=== PATIENT | male | born 1950 | race African-American/Black ===

== ENCOUNTER 2020-04-26 17:18 | Inpatient (IN) | payer MEDICARE, OTHER ==
[2020-04-26] MEDS ORDERED: Diltiazem 125 MG/25 ML ONE (17:47)
--- NOTE | 2020-04-26 17:51 | RAD ---
Portable frontal chest radiograph: 04/26/2020 COMPARISON: 07/29/2020 HISTORY: Weakness, cough, hypotension FINDINGS: Stable heart and mediastinal contours. Stable atherosclerotic calcification of the aortic a rch. Mild linear interstitial density seen in the perihilar regions, not significantly changed. No focal consolidation or alveolar edema. IMPRESSION: No significant interval change.
[2020-04-26 18:07] LABS: Hemoglobin 14.9 g/dL (14.0-18.0); Mean Corpuscular HGB CONC 33.3 g/dL (32.0-36.0); Mean Corpuscular Hemoglobin 30.6 pg (27.0-31.0); Mean Corpuscular Volume 91.9 fL (78.0-98.0); Mean Platelet Volume 9.8 fL (7.4-10.4); Platelet Count 199 thou/uL (130-400); RBC Distribution Width 13.5 % (11.5-14.5); Red Blood Cell (RBC) Count 4.87 mill/uL (4.70-6.10); White Blood Cell (WBC) Count 28.2 thou/uL (4.8-10.8)
[2020-04-26 18:40] LABS: ALT (SGPT) 115 U/L (8-55); AST (SGOT) 111 U/L (5-34); Albumin 2.8 g/dL (3.4-4.8); Alkaline Phosphatase 154 U/L (40-110); Anion Gap 23 mmol/L (10-20); Bilirubin, Total 1.4 mg/dL (0.2-1.2); Calc. Creatinine Clearance 0 mL/min (70-130); Carbon Dioxide 18 mmol/L (23-31); Chloride 107 mmol/L (98-107); Globulin 3.9 g/dL (2.4-3.5); Glucose 71 mg/dL (80-115); Potassium 5.3 mmol/L (3.5-5.1); Protein, Total 6.7 g/dL (5.8-8.1); Sodium 143 mmol/L (136-145)
[2020-04-26 18:41] LABS: Band 26 % (5-11); Lymphocytes 1 % (21-51); MDiff Complete? YES; Monocytes 3 % (0-10); Neutrophil 70 % (42-75); Platelet Morphology Comment Appears Adequate; Polychromasia SLIGHT = 2-3 cells (100X) (0-2/hpf); Target Cells SLIGHT = 2-5 cells (100X) (0-1/hpf)
[2020-04-26 18:53] LABS: CKMB 4.6 ng/mL (0-6.6)
[2020-04-26 18:57] LABS: BUN (Urea Nitrogen) 114 mg/dL (8.4-25.7)
[2020-04-26 19:08] LABS: Bacteria/HPF 4+ HPF (None Seen); Bilirubin Negative (Negative); Blood, Urine 2+ (Negative); Clarity Turbid (Clear); Glucose, Urine (Dipstick) Normal (Negative); Ketone, Urine Negative (Negative); Leukocyte 500 Leu/uL (Negative); Nitrite Negative (Negative); Protein, Urine (Dipstick) 30 mg/dL (Neg-Trace); Specific Gravity, Urine 1.015 (1.002-1.036); Squamous Epithelial 0-3 HPF (0-3); WBC/HPF Greater than 50 HPF (0-3); pH, Urine 5.5 (5.0-9.0)
[2020-04-26 19:19] LABS: Amphetamine Not Detected (NotDetected); Barbiturates Screen Not Detected (NotDetected); Benzodiazepine Screen Not Detected (NotDetected); Cocaine Metabolite Screen Not Detected (NotDetected); Medtox Control Line Valid? VALID (VALID); Medtox Reader # READER 4; Methadone Not Detected (NotDetected); Methamphetamine Not Detected (NotDetected); Opiate Screen Not Detected (NotDetected); Oxycodone Screen Not Detected (NotDetected); Phencyclidine (PCP) Not Detected (NotDetected); THC/Cannabinoid Screen Not Detected (NotDetected); Tricyclic Screen Not Detected (NotDetected)
[2020-04-26] MEDS ORDERED: Vancomycin 1 GM/200 ML BAG ONE (19:28)
[2020-04-26] MEDS ORDERED: Piperacillin/Tazobactam 4.5 GM VIAL ONE (20:03)
--- NOTE | 2020-04-26 20:03 | ULT ---
Right upper quadrant ultrasound: 04/26/2020 COMPARISON: None HISTORY: Elevated white blood cell count, elevated liver function tests TECHNIQUE: Multiplanar grayscale sonographic imaging of the right upper quadrant obtained. FINDINGS: The pancreas is not well assessed on this examination secondary to body habitus and bowel g as. There is an echogenic lesion within the left lobe of the liver which measures approximately 3.4 x 2.6 x 1.7 cm. This could be related to focal fatty infiltration or a focal liver lesion, such as a hemangioma. However, this cannot be fully characterized on this exam. No gallbladder wall thickening. No pericholecystic free fluid. The common bile duct measures 5 mm, no rmal. Multiple right renal cysts are noted measuring up to 3.9 cm. The right kidney measures 11.7 cm in multi craft maintenance technician niocaudal dimension and demonstrates no stone stone or hydronephrosis. IMPRESSION: No cholelithiasis or gallbladder wall thickening. Nonspecific echogenic lesion within the liver for which nonemergent follow-up CT advised with and wit hout contrast using hepatic mass protocol. CODE T
[2020-04-26] MEDS ORDERED: Acetaminophen 325 MG TAB PO PRN (22:15)
[2020-04-26] MEDS ORDERED: Ondansetron PF 4 MG/2 ML Vial IVP PRN (22:15)
[2020-04-26] MEDS ORDERED: Ondansetron ODT 4 MG TAB SL PRN (22:15)
[2020-04-26 22:35] LABS: SARS-CoV-2 NAA Rapid Test DETECTED (NotDetected)
[2020-04-26 22:55] VITALS: BMI 24.8
[2020-04-26 23:08] LABS: Lactic Acid 1.6 mmol/L (0.5-2.2)
[2020-04-27] MEDS ORDERED: Labetalol HCl 100 MG/20 ML VIAL SLOW IVP PRN (00:53)
[2020-04-27] MEDS ORDERED: cloNIDine 0.1 MG TAB PO PRN (00:53)
[2020-04-27] MEDS ORDERED: Acetaminophen 325 MG TAB PO PRN (00:53)
[2020-04-27] MEDS ORDERED: Promethazine HCl 12.5 MG in Sodium Chloride 0.9% 50 ML IVPB PRN (00:53)
[2020-04-27] MEDS ORDERED: Ondansetron PF 4 MG/2 ML Vial IVP PRN (00:53)
[2020-04-27] MEDS ORDERED: hydrALAZINE 20 MG/ML VIAL SLOW IVP PRN (00:53)
[2020-04-27] MEDS ORDERED: HYDROcodone/Acetaminophen 5/325 mg Tablet PO PRN (00:53)
[2020-04-27] MEDS ORDERED: Guaifenesin DM 100-10/5 ML UDCUP PO PRN (00:53)
[2020-04-27] MEDS ORDERED: Morphine 2 MG/ML VIAL SLOW IVP PRN (00:53)
[2020-04-27] MEDS ORDERED: Electrolyte Replacement Protocol 1 EACH FS PRN (01:00)
--- NOTE | 2020-04-27 01:09 | PDOC.HHP ---
Hospitalist HPI - History of Present Illness Weakness History of Present Illness: Patient is a 69 year old male with PMH HTN, atrial fibrillation on xarelto who presents to ED for 2 days of weakness. He reports was having difficulty getting off the floor he was so weak. He reports having the flu on 04/15. Initial vital signs significant for afib w/ RVR to 150 bpm, hypotension 94/63, improved with IVF. He denies fever, chills, cough, chest pain, shortness of breath. No nausea, vomiting, diarrhea, abdominal pain. Labs significant for WBC 28, bandemia, K 5.3, CO2 18, Cr 4.61, TnI 0.139, UA positive for UTI, EKG afib rvr rate 150, elevated LFTs. patient given diltiazem, RUQ performed which was negative for cholecystitis, patient given ABX and admitted for further workup and care. Hospitalist ROS - Review of Systems Constitutional: reports: weakness, malaise. denies: fever, chills, sweats, other Eyes: denies: pain, vision change, conjunctivae inflammation, eyelid inflammation, redness, other ENT: denies: ear pain, ear discharge, nose pain, nose discharge, nose congestion, mouth pain, mouth swelling, throat pain, throat swelling, other Respiratory: denies: cough, dry, shortness of breath, hemoptysis, SOB with excertion, pleuritic pain, sputum, wheezing, other Cardiovascular: denies: chest pain, palpitations, orthopnea, paroxysmal noc. dyspnea, edema, light headedness, other Gastrointestinal: denies: nausea, vomiting, abdominal pain, diarrhea, constipation, melena, hematochezia, other Genitourinary: denies: dysuria, frequency, incontinence, hematuria, retention, other Musculoskeletal: denies: neck pain, shoulder pain, arm pain, back pain, hand miguel angel n, leg pain, foot pain, other Skin: denies: rash, lesions, courtney, bruising, other Neurological: denies: weakness, numbness, incoordination, change in speech, confusion, seizures, other All other systems reviewed; all pertinent +/- noted in HPI/Subj - Medication Medications: lisinopril [facility] Apr 26, 2020 18:04 CHANDRIKA Edwards, Bindu tablet : Strength - 20 mg : ORAL Patient Dose: 20 mg Oral once a day. carvedilol [facility] Apr 26, 2020 18:04 CHANDRIKA Edwards Laine tablet : Strength - 25 mg : ORAL Patient Dose: 25 mg Oral once a day. spironolactone [facility] Apr 26, 2020 18:04 CHANDRIKA Edwards Laine tablet : Strength - 25 mg : ORAL Patient Dose: 25 mg Oral. amLODIPine [facility] Apr 26, 2020 18:05 CHANDRIKA Edwards Laine tablet : Strength - 5 mg : ORAL Patient Dose: 5 mg Oral once a day. simvastatin [facility] Apr 26, 2020 18:05 CHANDRIKA Edwards Laine tablet : Strength - 20 mg : ORAL Patient Dose: 20 mg Oral once a day. buPROPion HCl [facility] Apr 26, 2020 18:05 CHANDRIKA Edwards Laine tablet extended release 24 hr : Strength - 300 mg : ORAL Patient Dose: 300 mg Oral once a day. isosorbide mononitrate [facility] Apr 26, 2020 18:07 CHANDRIKA Edwards Laine tablet extended release 24 hr : Strength - 30 mg : ORAL Patient Dose: 30 mg Oral once a day. Xarelto [facility] Apr 26, 2020 18:08 CHANDRIKA Edwards Laine tablet : Strength - 20 mg : ORAL Patient Dose: 20 mg Oral once a day. aspirin oral [facility] Apr 26, 2020 18:09 CHANDRIKA Edwards Laine tablet : Strength - 81 mg : ORAL Patient Dose: 81 mg Oral once a day. Hospitalist History - Past Medical History Other Medical History: HTN, atrial fibrillation on xarelto - Past Surgical History Past Surgical History: reports: no pertinent history - Family History Family History: reports: no pertinent history - Social History Smoking Status: Former smoker Alcohol: reports: None Drugs: reports: none - Exam General Appearance: NAD, awake alert Eye: PERRL, anicteric sclera ENT: normocephalic atraumatic, no oropharyngeal lesions, moist mucosa Neck: supple, symmetric, no JVD, no thyromegaly, no lymphadenopathy, no carotid bruit Heart: no murmur, no gallops, no rubs, normal peripheral pulses, irregular Heart - other findings: tachycardic Respiratory: CTAB, no wheezes, no rales, no ronchi, normal chest expansion, no tachypnea, normal percussion Gastrointestinal: soft, non-tender, non-distended, normal bowel sounds, no palpable masses, no hepatomegaly, no splenomegaly, no bruit Extremities: no cyanosis, no clubbing, no edema Skin: normal turgor, no lesions, no rashes Neurological: cranial nerve grossly intact, normal sensation to touch, no weakness, no focal deficits, no new deficit Musculoskeletal: normal tone, normal strength, no muscle wasting Psychiatric: normal affect, normal behavior, A&O x 3 Hospitalist Results - Labs Result Diagrams: 04/26/20 17:56 04/26/20 17:56 Lab results: WBC 28.2 thou/uL (4.8-10.8) H 04/26/20 17:56 Hgb 14.9 g/dL (14.0-18.0) 04/26/20 17:56 Hct 44.7 % (42.0-52.0) 04/26/20 17:56 MCV 91.9 fL (78.0-98.0) 04/26/20 17:56 Plt Count 199 thou/uL (130-400) 04/26/20 17:56 Band Neuts % (Manual) 26 % (5-11) H 04/26/20 17:56 Sodium 143 mmol/L (136-145) 04/26/20 17:56 Potassium 5.3 mmol/L (3.5-5.1) H 04/26/20 17:56 Chloride 107 mmol/L (98-107) 04/26/20 17:56 Carbon Dioxide 18 mmol/L (23-31) L 04/26/20 17:56 BUN 114 mg/dL (8.4-25.7) H 04/26/20 17:56 Creatinine 4.61 mg/dL (0.7-1.3) H 04/26/20 17:56 Glucose 71 mg/dL (80-115) L 04/26/20 17:56 Lactic Acid 1.6 mmol/L (0.5-2.2) 04/26/20 22:46 Calcium 8.0 mg/dL (7.8-10.44) 04/26/20 17:56 Total Bilirubin 1.4 mg/dL (0.2-1.2) H 04/26/20 17:56 AST 111 U/L (5-34) H 04/26/20 17:56 ALT 115 U/L (8-55) H 04/26/20 17:56 Alkaline Phosphatase 154 U/L (40-110) H 04/26/20 17:56 Creatine Kinase 867 U/L (30-200) H 04/26/20 18:35 CK-MB (CK-2) 4.6 ng/mL (0-6.6) 04/26/20 17:56 Troponin I 0.139 ng/mL (< 0.028) H 04/26/20 17:56 B-Natriuretic Peptide 128.6 pg/mL (0-100) H 04/26/20 17:56 Serum Total Protein 6.7 g/dL (5.8-8.1) 04/26/20 17:56 Albumin 2.8 g/dL (3.4-4.8) L 04/26/20 17:56 Urine Ketones Negative mg/dL (Negative) 04/26/20 18:41 Urine Blood 2+ (Negative) A 04/26/20 18:41 Urine Nitrite Negative (Negative) 04/26/20 18:41 Ur Leukocyte Esterase 500 Ishan/uL (Negative) A 04/26/20 18:41 Urine RBC 4-6 HPF (0-3) A 04/26/20 18:41 Urine WBC Greater than 50 HPF (0-3) A 04/26/20 18:41 Ur Squamous Epith Cells 0-3 HPF (0-3) 04/26/20 18:41 Urine Bacteria 4+ HPF (None Seen) A 04/26/20 18:41 Additional comment: VITAL SIGNS [facility] Apr 26, 2020 17:39 CHANDRIKA Edwards Laine BP: 93/76 Pulse: 128 Resp: 20 Temp: 98.9 (Oral) Pain: 0 O2 sat: 100 on (Room Air) Time: 04/26/2020 17:39. - EKG Interpretation EKG: afib rvr rate [address] changes, QTc 420 Hospitalist H&P A/P - Plan Plan: Patient is a 69 year old male with PMH HTN, atrial fibrillation on xarelto who presents to ED for 2 days of weakness. # UTI # sepsis secondary to UTI # metabolic encephalopathy tachycardia, afib rvr, weakness x 2 days improved with initial management in ED - admit to floor - continue IVF - monitor on telemetry - ceftriaxone - follow cultures - PT/OT # afib w/ RVR # elevated troponin # elevated LFTs - US abdomen negative for cholecystitis, suspect these abnormalities secondary to hypotension, sepsis, and demand ischemia - treat as above - trend labs daily - continue home aspirin, xarelto # hyperkalemia - mild, K 5.3 on admission # RYLAN - patient clinically hypovolemia - continue treatment as above, IVF, monitor renal function # HTN - hold home BP medications, continue treatment as above and resume once appropriate # DVT ppx - xarelto # GI ppx - pepcid
[2020-04-27] MEDS: Sodium Chloride 0.9% 1,000 ML IV SCH ×3 (01:16→19:27)
[2020-04-27] MEDS ORDERED: cefTRIAXone\\ROCEPHIN 1 GM in Sodium Chloride 0.9% 100 ML IVPB SCH ×2 (02:00→21:00)
[2020-04-27] MEDS ORDERED: Azithromycin 500 MG in Syringe 0 ML IVPB SCH (02:15)
[2020-04-27] MEDS ORDERED: Dexamethasone 4 mg/ml Vial SLOW IVP SCH (02:15)
[2020-04-27] MEDS ORDERED: Azithromycin 500 MG in Sodium Chloride 0.9% 250 ML 250 ML IVPB SCH (03:00)
[2020-04-27 05:40] LABS: Anion Gap 18 mmol/L (10-20); BUN (Urea Nitrogen) 102 mg/dL (8.4-25.7); Calc. Creatinine Clearance 25 mL/min (70-130); Calcium 8.1 mg/dL (7.8-10.44); Carbon Dioxide 19 mmol/L (23-31); Chloride 109 mmol/L (98-107); Glucose 90 mg/dL (80-115); Magnesium 2.4 mg/dL (1.6-2.6); Potassium 3.8 mmol/L (3.5-5.1); Sodium 142 mmol/L (136-145)
[2020-04-27 05:55] LABS: Band 24 % (5-11); Hemoglobin 14.1 g/dL (14.0-18.0); Lymphocytes 2 % (21-51); MDiff Complete? YES; Mean Corpuscular HGB CONC 32.8 g/dL (32.0-36.0); Mean Corpuscular Volume 91.5 fL (78.0-98.0); Mean Platelet Volume 9.5 fL (7.4-10.4); Monocytes 4 % (0-10); Neutrophil 70 % (42-75); Platelet Count 192 thou/uL (130-400); RBC Distribution Width 13.5 % (11.5-14.5); White Blood Cell (WBC) Count 21.4 thou/uL (4.8-10.8)
[2020-04-27] MEDS: Aspirin 81 mg Enteric Coated Tablet PO SCH (08:06)
[2020-04-27] MEDS: Rivaroxaban 10 MG TAB PO SCH (08:06)
[2020-04-27] MEDS: Famotidine 20 MG TAB PO SCH (08:06)
[2020-04-27] MEDS ORDERED: Spironolactone 25 MG TAB PO SCH (09:00)
--- NOTE | 2020-04-27 09:14 | PDOC.HOSPP ---
- Subjective Encounter Date: 04/27/20 Encounter Time: 09:11 Subjective: profound weakness, generalized. had flu 2 weeks ago - Objective Vital Signs & Weight: Vital Signs (12 hours) Temp Pulse Resp BP Pulse Ox 04/27/20 08:06 97.8 F 88 18 128/58 L 97 04/27/20 03:35 97.6 F 69 18 99/59 L 93 L 04/27/20 00:05 107 H 103/77 95 04/26/20 22:00 97.7 F 104 H 24 H 137/64 94 L Weight Weight 180 lb 11.2 oz I&O: 04/26/20 04/27/20 04/28/20 06:59 06:59 06:59 Intake Total 1510 1103 Output Total 950 300 Balance 560 803 Result Diagrams: 04/27/20 05:00 04/27/20 05:00 Hospitalist ROS - Medication Medications: Active Medications Generic Name Dose Route Start Last Admin Trade Name Freq PRN Reason Stop Dose Admin Aspirin 81 mg 04/27/20 09:00 04/27/20 08:06 Aspirin 81 Mg Enteric Coated Tablet PO 81 mg DAILY TAM Administration Dexamethasone 6 mg 04/27/20 02:15 04/27/20 02:36 Dexamethasone 4 Mg/Ml Vial SLOW IVP 6 mg Q24H TAM Administration Famotidine 20 mg 04/27/20 09:00 04/27/20 08:06 Famotidine 20 Mg Tab PO 20 mg 0900 TAM Administration Sodium Chloride 1,000 mls @ 100 mls/hr 04/27/20 01:00 04/27/20 01:16 Normal Saline 0.9% IV 1,000 mls .Q10H TAM Administration Azithromycin 500 mg/ Sodium 250 mls @ 250 mls/hr 04/27/20 03:00 04/27/20 03:34 Chloride IVPB 250 mls Q24HR TAM Administration Rivaroxaban 20 mg 04/27/20 09:00 04/27/20 08:06 Rivaroxaban 10 Mg Tab PO 20 mg DAILY TAM Administration Spironolactone 25 mg 04/27/20 09:00 04/27/20 08:06 Spironolactone 25 Mg Tab PO 25 mg DAILY TAM Administration - Exam General Appearance: awake alert Neck: no JVD Heart: no murmur, irregular Respiratory: CTAB Gastrointestinal: soft, normal bowel sounds Extremities: no edema Hosp A/P (1) COVID-19 Code(s): U07.1 - COVID-19 Status: Acute (2) Atrial fibrillation with RVR Code(s): I48.91 - UNSPECIFIED ATRIAL FIBRILLATION Status: Acute (3) Acute renal failure Status: Acute Qualifiers: Acute renal failure type: unspecified Qualified Code(s): N17.9 - Acute kidney failure, unspecified (4) Leukocytosis Code(s): D72.829 - ELEVATED WHITE BLOOD CELL COUNT, UNSPECIFIED Status: Acute Qualifiers: Leukocytosis type: unspecified Qualified Code(s): D72.829 - Elevated white blood cell count, unspecified (5) HTN (hypertension) Code(s): I10 - ESSENTIAL (PRIMARY) HYPERTENSION Status: Chronic Qualifiers: Hypertension type: essential hypertension Qualified Code(s): I10 - Essential (primary) hypertension (6) Anticoagulant long-term use Code(s): Z79.01 - ADJUNCT PROFESSOR (CURRENT) USE OF ANTICOAGULANTS Status: Acute (7) Weakness Code(s): R53.1 - WEAKNESS Status: Acute - Plan no evidence covid PNA obtain CRP, D-Dimer, ferriten cont iv diltiazem, cardiology consult await C&S blood, urine cont iv antibx will discuss with Gray lino, serial BMP
[2020-04-27] MEDS: Simvastatin 20 MG TAB PO SCH (13:09)
[2020-04-27] MEDS: Bupropion 150 MG XL TAB PO SCH (13:09)
--- NOTE | 2020-04-27 14:58 | PDOC.BPN ---
- Brief Progress Note Encounter Date: 04/27/20 Encounter Time: 14:57 no evidense covid PNA. DC dexamethasone. urine C&S graam neg viviane- change antibx to cefepime pending sensativities. Dx sepsi, UTI.
[2020-04-27] MEDS ORDERED: Potassium Chloride 20 MEQ TAB PO SCH (17:00)
[2020-04-27] MEDS: Cefepime 2 GM in Sodium Chloride 0.9% 100 ML IVPB SCH (18:16)
--- NOTE | 2020-04-27 19:25 | CON ---
DATE OF CONSULTATION: PRIMARY COTTON FARMER: Dr. Ambrosio Walker. REASON FOR CONSULTATION: Atrial fibrillation and nonsustained ventricular tachycardia, COVID positive. HISTORY OF PRESENT ILLNESS: Mr. Ervin is a 69-year-old gentleman who states he has been feeling extremely weak since the early part of this month. He said specifically on the 15 of April, started feeling very very weak. He got weak and weaker over the last 12 days, finally came to the emergency room, was found to be in atrial fibrillation with rapid ventricular response from what I can tell. He could not tell he was in atrial fibrillation. He has also had renal failure and hypotension. He received intravenous fluid. He was found to have a very high white blood cell count and a creatinine of 4.6. Urinary tract infection was found. He has been given diltiazem. MEDICATIONS: As an outpatient, he is on, 1. Spironolactone 25 mg a day. 2. Lisinopril 20 mg a day. 3. Rivaroxaban (Xarelto) 20 mg a day. 4. Isosorbide 30 mg a day. 5. Carvedilol 25 mg, it is listed here as once a day. 6. Aspirin 81 mg a day. 7. Amlodipine 5 mg a day. ALLERGIES: NONE KNOWN. SOCIAL HISTORY: He said he quit smoking when he got sick in the . REVIEW OF SYSTEMS: CONSTITUTIONAL: No significant weight gain or loss, although he looks very thin. VISION: No changes. HEARING: No changes. PULMONARY: He is short of breath. CARDIAC: No chest pain or pressure. He is not aware of being in atrial fibrillation, cannot feel the palpitations. ABDOMEN: No nausea, vomiting, or diarrhea. PHYSICAL EXAMINATION: GENERAL: This is a somewhat chronically ill-appearing, very pleasant gentleman, in no distress. VITAL SIGNS: Oxygen saturations are variable, they intermittently go into the high 90s, but then drop into the mid 80s. Blood pressure 122/68. Pulse currently 80, it is irregularly irregular. NECK: Veins are normal. Carotid normal upstrokes. LUNGS: I do not hear wheezing, rales, or rhonchi. Breath sounds are somewhat shallow. CARDIAC: Irregularly irregular. No murmur, rub, or gallop. ABDOMEN: Soft, nontender. EXTREMITIES: Warm, dry. No clubbing or cyanosis. He has no edema. IMAGING: EKG reveals atrial fibrillation initially with a very rapid ventricular response, now more controlled ventricular response. The patient has had episodes of ventricular tachycardia. He had a 12-beat run of ventricular tachycardia last night at 2355 hours, appeared to be monomorphic, heart rate in the 160s. Other episode of 16-beat ventricular tachycardia, heart rate there was slower, looks more like 140 to 150 range, also monomorphic. Chest x-ray did not show evidence of pneumonia. Nasal swab positive for COVID. LABORATORY DATA: The creatinine has gone from 4.6 to 3.3. ASSESSMENT: 1. Atrial fibrillation, unknown if chronic or paroxysmal, currently sustained. 2. Acute renal failure, improving with hydration. 3. Increased troponin level, probably type 2 myocardial infarction, non-ST elevation myocardial infarction, demand ischemia. 4. Positive COVID infection. 5. Hypotension, improving. 6. Increased white blood cell count of 20,000. PLAN: 1. Continue intravenous Cardizem for now. 2. To try to help with the rate control, we will continue beta blockers. He is listed as being on carvedilol 25 mg once a day, we will change that to 12.5 twice a day. 3. Continue intravenous diltiazem for now. 4. Try to get records to see if this is acute or chronic. Hopefully, an echocardiogram could be done at some point to evaluate left ventricular function in view of the ventricular tachycardia. We will follow with you this challenging case with multiple problems. Job ID: [id number]
[2020-04-27] MEDS ORDERED: Enoxaparin Sodium 40 MG/0.4 ML SYRINGE SC SCH (21:00)
[2020-04-28] MEDS: Cefepime 2 GM in Sodium Chloride 0.9% 100 ML IVPB SCH (04:02)
[2020-04-28 06:09] LABS: ALT (SGPT) 82 U/L (8-55); AST (SGOT) 62 U/L (5-34); Albumin 2.5 g/dL (3.4-4.8); Alkaline Phosphatase 112 U/L (40-110); Bilirubin, Direct 0.5 mg/dL (0.1-0.3); Bilirubin, Total 0.6 mg/dL (0.2-1.2); Protein, Total 6.4 g/dL (5.8-8.1)
[2020-04-28] MEDS: Sodium Chloride 0.9% 1,000 ML IV SCH ×2 (06:12→11:38)
[2020-04-28 06:15] LABS: Anion Gap 13 mmol/L (10-20); BUN (Urea Nitrogen) 64 mg/dL (8.4-25.7); Calc. Creatinine Clearance 42 mL/min (70-130); Calcium 8.1 mg/dL (7.8-10.44); Carbon Dioxide 20 mmol/L (23-31); Chloride 113 mmol/L (98-107); Glucose 145 mg/dL (80-115); Magnesium 1.9 mg/dL (1.6-2.6); Potassium 4.7 mmol/L (3.5-5.1); Sodium 141 mmol/L (136-145)
[2020-04-28] MEDS ORDERED: Magnesium 2 GM/50 ML 2 GM in Premix Bag 1 BAG IVPB SCH (06:30)
[2020-04-28 06:45] LABS: Hemoglobin 13.5 g/dL (14.0-18.0); Mean Corpuscular HGB CONC 32.6 g/dL (32.0-36.0); Mean Corpuscular Hemoglobin 30.3 pg (27.0-31.0); Mean Platelet Volume 9.7 fL (7.4-10.4); Platelet Count 196 thou/uL (130-400); RBC Distribution Width 13.4 % (11.5-14.5); Red Blood Cell (RBC) Count 4.46 mill/uL (4.70-6.10); White Blood Cell (WBC) Count 13.1 thou/uL (4.8-10.8)
[2020-04-28 06:47] LABS: MDiff Complete? YES
[2020-04-28 06:48] LABS: Band 5 % (5-11); Lymphocytes 7 % (21-51); Monocytes 5 % (0-10); Myelocyte 1 % (0-0); Neutrophil 82 % (42-75)
[2020-04-28] MEDS: Bupropion 150 MG XL TAB PO SCH (08:13)
[2020-04-28] MEDS: Carvedilol 6.25 MG TAB PO SCH ×2 (08:14→18:42)
[2020-04-28] MEDS: Aspirin 81 mg Enteric Coated Tablet PO SCH (08:14)
[2020-04-28] MEDS: Famotidine 20 MG TAB PO SCH (08:14)
[2020-04-28] MEDS: Simvastatin 20 MG TAB PO SCH (08:15)
[2020-04-28] MEDS: Rivaroxaban 10 MG TAB PO SCH (08:15)
[2020-04-28] MEDS ORDERED: Carvedilol 25 MG TAB PO SCH (09:00)
[2020-04-28] MEDS: cefTRIAXone\\ROCEPHIN 1 GM in Sodium Chloride 0.9% 100 ML IVPB SCH (11:36)
--- NOTE | 2020-04-28 12:57 | PDOC.HOSPP ---
- Subjective Encounter Date: 04/28/20 Subjective: The patient is feeling better. He still requiring on supplemental oxygen. Diarrhea was reported. - Objective Vital Signs & Weight: Vital Signs (12 hours) Temp Pulse Resp BP Pulse Ox 04/28/20 11:38 97.9 F 97 20 115/74 98 04/28/20 08:15 97.4 F L 104 H 18 132/81 92 L 04/28/20 03:45 97.9 F 91 16 122/88 99 Weight Weight 182 lb 12.8 oz I&O: 04/27/20 04/28/20 04/29/20 06:59 06:59 06:59 Intake Total 1510 4818 1818 Output Total 950 1325 600 Balance 560 3493 1218 Result Diagrams: 04/28/20 05:18 04/28/20 05:18 Hospitalist ROS - Medication Medications: Active Medications Generic Name Dose Route Start Last Admin Trade Name Freq PRN Reason Stop Dose Admin Aspirin 81 mg 04/27/20 09:00 04/28/20 08:14 Aspirin 81 Mg Enteric Coated Tablet PO 81 mg DAILY TAM Administration Bupropion HCl 300 mg 04/27/20 09:00 04/28/20 08:13 Bupropion 150 Mg Xl Tab PO 300 mg DAILY TAM Administration Carvedilol 12.5 mg 04/28/20 08:00 04/28/20 08:14 Carvedilol 6.25 Mg Tab PO 12.5 mg BID-WM TAM Administration Famotidine 20 mg 04/27/20 09:00 04/28/20 08:14 Famotidine 20 Mg Tab PO 20 mg 0900 TAM Administration Sodium Chloride 1,000 mls @ 100 mls/hr 04/27/20 01:00 04/28/20 11:38 Normal Saline 0.9% IV 1,000 mls .Q10H TAM Administration Ceftriaxone Sodium 1 gm/ 100 mls @ 200 mls/hr 04/28/20 08:15 04/28/20 11:36 Sodium Chloride IVPB 100 mls Q24HR TAM Administration Pantoprazole Sodium 40 mg 04/27/20 09:00 04/28/20 08:15 Pantoprazole 40 Mg Tab PO 40 mg DAILY TAM Administration Rivaroxaban 20 mg 04/27/20 09:00 04/28/20 08:15 Rivaroxaban 10 Mg Tab PO 20 mg DAILY TAM Administration Simvastatin 20 mg 04/27/20 09:00 04/28/20 08:15 Simvastatin 20 Mg Tab PO 20 mg DAILY TAM Administration - Exam General Appearance: awake alert ENT: normocephalic atraumatic Neck: supple, no JVD Heart: murmur present Respiratory: normal chest expansion, no tachypnea Extremities: no cyanosis, no edema Hosp A/P (1) Urinary tract infection Status: Acute (2) Anticoagulant long-term use Code(s): Z79.01 - NURSING HOME (CURRENT) USE OF ANTICOAGULANTS Status: Acute (3) Atrial fibrillation with RVR Code(s): I48.91 - UNSPECIFIED ATRIAL FIBRILLATION Status: Acute (4) COVID-19 Code(s): U07.1 - COVID-19 Status: Acute (5) Weakness Code(s): R53.1 - WEAKNESS Status: Acute - Plan The patient's oxygenation appears to be improving. He remains on dexamethasone. Diarrhea is present which could be related to COVID-19 versus C. difficile given the recent antibiotic course. I will check stool for C. difficile toxin. Urine culture showing growth of Escherichia coli sensitive to all antibiotics that were tested. We will change the coverage to ceftriaxone. A. fib is rate controlled on carvedilol. Rivaroxaban for anticoagulation. PT and OT for generalized weakness.
[2020-04-28] MEDS ORDERED: Magnesium Sulfate 3 GM in Sodium Chloride 0.9% 100 ML IVPB SCH (18:00)
--- NOTE | 2020-04-28 18:28 | PRG ---
DATE OF SERVICE: 04/28/2020 SUBJECTIVE: Mr. Ervin feels better today. He is off the intravenous Cardizem. He is on carvedilol and his heart rate is in the 90s. OBJECTIVE: VITAL SIGNS: His blood pressure 106/76, pulse is in the 90s. LUNGS: Clear. CARDIAC: Irregularly irregular. ABDOMEN: Soft, nontender. EXTREMITIES: There is no edema. LABORATORY DATA: Creatinine is improved down to 1.97. Ferritin is up to 606. C-reactive protein high. These are all inflammatory markers from COVID. ASSESSMENT: 1. Coronavirus disease infection, improving. 2. Atrial fibrillation, rate better controlled. 3. No further ventricular tachycardia. 4. Renal failure, resolving. PLAN: 1. Continue intravenous fluids. 2. We will give him some magnesium. His levels are dropping as he is diuresing. Continue current medical regimen. The patient is improving. I did discuss with Dr. Ambrosio Walker. His ejection fraction is normal on echocardiogram. He has chronic atrial fibrillation. Job ID: [id number]
[2020-04-29] MEDS: Sodium Chloride 0.9% 1,000 ML IV SCH ×2 (03:45→16:02)
[2020-04-29 05:36] LABS: Hemoglobin 13.8 g/dL (14.0-18.0); Mean Corpuscular HGB CONC 32.3 g/dL (32.0-36.0); Mean Corpuscular Hemoglobin 29.9 pg (27.0-31.0); Mean Corpuscular Volume 92.5 fL (78.0-98.0); Mean Platelet Volume 9.4 fL (7.4-10.4); Platelet Count 223 thou/uL (130-400); RBC Distribution Width 13.4 % (11.5-14.5); Red Blood Cell (RBC) Count 4.62 mill/uL (4.70-6.10); White Blood Cell (WBC) Count 11.8 thou/uL (4.8-10.8)
[2020-04-29 05:37] LABS: Anion Gap 13 mmol/L (10-20); BUN (Urea Nitrogen) 44 mg/dL (8.4-25.7); Calc. Creatinine Clearance 54 mL/min (70-130); Carbon Dioxide 19 mmol/L (23-31); Chloride 113 mmol/L (98-107); Glucose 93 mg/dL (80-115); Magnesium 2.2 mg/dL (1.6-2.6); Sodium 141 mmol/L (136-145)
[2020-04-29 05:50] LABS: Band 4 % (5-11); Lymphocytes 12 % (21-51); MDiff Complete? YES; Monocytes 6 % (0-10); Myelocyte 1 % (0-0); Neutrophil 77 % (42-75)
[2020-04-29] MEDS: Famotidine 20 MG TAB PO SCH (10:02)
[2020-04-29] MEDS: Aspirin 81 mg Enteric Coated Tablet PO SCH (10:02)
[2020-04-29] MEDS: Rivaroxaban 10 MG TAB PO SCH (10:02)
[2020-04-29] MEDS: Bupropion 150 MG XL TAB PO SCH (10:03)
[2020-04-29] MEDS: Carvedilol 6.25 MG TAB PO SCH ×2 (10:03→17:40)
[2020-04-29] MEDS: cefTRIAXone\\ROCEPHIN 1 GM in Sodium Chloride 0.9% 100 ML IVPB SCH (10:03)
[2020-04-29] MEDS: Simvastatin 20 MG TAB PO SCH (10:04)
--- NOTE | 2020-04-29 11:03 | PRG ---
DATE OF SERVICE: 04/29/2020 SUBJECTIVE: Mr. Ervin feels better today. His breathing is improved. He overall feels better. OBJECTIVE: VITAL SINGS: Blood pressure 137/74, pulse rate 90 and it is atrial fibrillation. Physical examination was not done other than visual inspection. The patient is COVID positive, we are trying to limit contacts and preserve PPE. He did confirm to me that he is taking Coreg 25 mg twice a day at home. ASSESSMENT: 1. Chronic atrial fibrillation with rates better controlled. 2. Recurrent ventricular arrhythmias. 3. COVID infection. PLAN: 1. Increase carvedilol. 2. Continue with potassium. 3. Suspect we can likely discontinue the fluid tomorrow. The patient continues to improve. 4. He received magnesium yesterday and his magnesium level is now normal. Job ID: [id number] MTDD
[2020-04-29] MEDS ORDERED: Potassium Chloride 20 MEQ TAB PO SCH (12:00)
--- NOTE | 2020-04-29 12:11 | PDOC.HOSPP ---
- Subjective Encounter Date: 04/29/20 Subjective: No evidence of respiratory distress. The patient is on 2 L of oxygen. Rate controlled on the monitor. - Objective Vital Signs & Weight: Vital Signs (12 hours) Temp Pulse Resp BP Pulse Ox 04/29/20 11:59 97.8 F 73 20 127/85 97 04/29/20 10:05 98.0 F 95 12 137/74 96 04/29/20 08:00 97.1 F L 70 20 140/59 L 95 04/29/20 04:00 98.5 F 70 30 H 127/74 96 Weight Weight 186 lb I&O: 04/28/20 04/29/20 04/30/20 06:59 06:59 06:59 Intake Total 4818 4633 360 Output Total 1325 1400 700 Balance 3493 3233 -340 Result Diagrams: 04/29/20 04:55 04/29/20 04:55 Hospitalist ROS - Medication Medications: Active Medications Generic Name Dose Route Start Last Admin Trade Name Freq PRN Reason Stop Dose Admin Aspirin 81 mg 04/27/20 09:00 04/29/20 10:02 Aspirin 81 Mg Enteric Coated Tablet PO 81 mg DAILY TAM Administration Bupropion HCl 300 mg 04/27/20 09:00 04/29/20 10:03 Bupropion 150 Mg Xl Tab PO 300 mg DAILY TAM Administration Famotidine 20 mg 04/27/20 09:00 04/29/20 10:02 Famotidine 20 Mg Tab PO 20 mg 0900 TAM Administration Sodium Chloride 1,000 mls @ 100 mls/hr 04/27/20 01:00 04/29/20 03:45 Normal Saline 0.9% IV 1,000 mls .Q10H TAM Administration Ceftriaxone Sodium 1 gm/ 100 mls @ 200 mls/hr 04/28/20 08:15 04/29/20 10:03 Sodium Chloride IVPB 100 mls Q24HR TAM Administration Pantoprazole Sodium 40 mg 04/27/20 09:00 04/29/20 10:03 Pantoprazole 40 Mg Tab PO 40 mg DAILY TAM Administration Potassium Chloride 40 meq 04/29/20 12:00 04/29/20 12:06 Potassium Chloride 20 Meq Tab PO 04/29/20 14:00 40 meq NOW TAM Administration Rivaroxaban 20 mg 04/27/20 09:00 04/29/20 10:02 Rivaroxaban 10 Mg Tab PO 20 mg DAILY TAM Administration Simvastatin 20 mg 04/27/20 09:00 04/29/20 10:04 Simvastatin 20 Mg Tab PO 20 mg DAILY TAM Administration - Exam ENT: normocephalic atraumatic Neck: supple Heart: irregular Respiratory: normal chest expansion, no tachypnea Extremities: no cyanosis, no clubbing Hosp A/P (1) Urinary tract infection Status: Acute (2) Anticoagulant long-term use Code(s): Z79.01 - SENIOR LIVING (CURRENT) USE OF ANTICOAGULANTS Status: Acute (3) Atrial fibrillation with RVR Code(s): I48.91 - UNSPECIFIED ATRIAL FIBRILLATION Status: Acute (4) COVID-19 Code(s): U07.1 - COVID-19 Status: Acute (5) Weakness Code(s): R53.1 - WEAKNESS Status: Acute - Plan Currently on 2 L of oxygen. He remains on dexamethasone. Urine culture showing growth of Escherichia coli sensitive to all antibiotics that were tested. Continue IV ceftriaxone. We can transition the patient to Augmentin for discharge. A. fib is rate controlled on carvedilol. Rivaroxaban for anticoagulation. PT and OT for generalized weakness.
[2020-04-30 05:25] LABS: Anion Gap 15 mmol/L (10-20); BUN (Urea Nitrogen) 35 mg/dL (8.4-25.7); Calc. Creatinine Clearance 46 mL/min (70-130); Calcium 8.3 mg/dL (7.8-10.44); Carbon Dioxide 21 mmol/L (23-31); Chloride 113 mmol/L (98-107); Glucose 96 mg/dL (80-115); Magnesium 1.6 mg/dL (1.6-2.6); Potassium 4.9 mmol/L (3.5-5.1); Sodium 144 mmol/L (136-145)
[2020-04-30] MEDS: Sodium Chloride 0.9% 1,000 ML IV SCH ×3 (05:50→18:31)
[2020-04-30] MEDS ORDERED: Magnesium 2 GM/50 ML 2 GM in Premix Bag 1 BAG IVPB SCH (07:15)
[2020-04-30] MEDS: cefTRIAXone\\ROCEPHIN 1 GM in Sodium Chloride 0.9% 100 ML IVPB SCH (09:04)
[2020-04-30] MEDS: Famotidine 20 MG TAB PO SCH (09:06)
[2020-04-30] MEDS: Rivaroxaban 10 MG TAB PO SCH (09:06)
[2020-04-30] MEDS: Bupropion 150 MG XL TAB PO SCH (09:06)
[2020-04-30] MEDS: Aspirin 81 mg Enteric Coated Tablet PO SCH (09:06)
[2020-04-30] MEDS: Carvedilol 6.25 MG TAB PO SCH ×2 (09:07→16:57)
[2020-04-30] MEDS: Simvastatin 20 MG TAB PO SCH (10:48)
--- NOTE | 2020-04-30 12:00 | PDOC.HOSPP ---
- Subjective Encounter Date: 04/30/20 Subjective: No new events overnight and the patient has no new complaints. - Objective Vital Signs & Weight: Vital Signs (12 hours) Temp Pulse Resp BP Pulse Ox 04/30/20 11:24 98.4 F 88 20 132/81 97 04/30/20 08:00 96.3 F L 97 20 143/76 H 97 04/30/20 04:00 98.2 F 61 20 118/83 Weight Weight 186 lb I&O: 04/29/20 04/30/20 05/01/20 06:59 06:59 06:59 Intake Total 4633 2360 360 Output Total 1400 1650 275 Balance 3233 710 85 Result Diagrams: 04/29/20 04:55 04/30/20 04:26 Hospitalist ROS - Medication Medications: Active Medications Generic Name Dose Route Start Last Admin Trade Name Freq PRN Reason Stop Dose Admin Aspirin 81 mg 04/27/20 09:00 04/30/20 09:06 Aspirin 81 Mg Enteric Coated Tablet PO 81 mg DAILY TAM Administration Bupropion HCl 300 mg 04/27/20 09:00 04/30/20 09:06 Bupropion 150 Mg Xl Tab PO 300 mg DAILY TAM Administration Carvedilol 25 mg 04/29/20 17:00 04/30/20 09:07 Carvedilol 6.25 Mg Tab PO 25 mg BID-WM TAM Administration Famotidine 20 mg 04/27/20 09:00 04/30/20 09:06 Famotidine 20 Mg Tab PO 20 mg 0900 TAM Administration Sodium Chloride 1,000 mls @ 100 mls/hr 04/27/20 01:00 04/30/20 09:54 Normal Saline 0.9% IV 1,000 mls .Q10H TAM Administration Ceftriaxone Sodium 1 gm/ 100 mls @ 200 mls/hr 04/28/20 08:15 04/30/20 09:04 Sodium Chloride IVPB 100 mls Q24HR TAM Administration Pantoprazole Sodium 40 mg 04/27/20 09:00 04/30/20 09:07 Pantoprazole 40 Mg Tab PO 40 mg DAILY TAM Administration Rivaroxaban 20 mg 04/27/20 09:00 04/30/20 09:06 Rivaroxaban 10 Mg Tab PO 20 mg DAILY TAM Administration Simvastatin 20 mg 04/27/20 09:00 04/30/20 10:48 Simvastatin 20 Mg Tab PO 20 mg DAILY TAM Administration Sodium Chloride 10 ml 04/30/20 09:00 04/30/20 09:07 Flush - Normal Saline 10 Ml Syringe IVF 10 ml Q12HR TAM Administration - Exam General Appearance: awake alert ENT: normocephalic atraumatic Neck: supple, no JVD Heart: irregular Respiratory: normal chest expansion, no tachypnea Extremities: no cyanosis, no clubbing Hosp A/P (1) Urinary tract infection Status: Acute (2) Anticoagulant long-term use Code(s): Z79.01 - [facility] (CURRENT) USE OF ANTICOAGULANTS Status: Acute (3) Atrial fibrillation with RVR Code(s): I48.91 - UNSPECIFIED ATRIAL FIBRILLATION Status: Acute (4) COVID-19 Code(s): U07.1 - COVID-19 Status: Acute (5) Weakness Code(s): R53.1 - WEAKNESS Status: Acute - Plan Currently on room air. I will wean him off dexamethasone. Urine culture showing growth of Escherichia coli sensitive to all antibiotics that were tested. Continue IV ceftriaxone. We can transition the patient to Augmentin for discharge. A. fib is rate controlled on carvedilol. Rivaroxaban for anticoagulation. PT and OT for generalized weakness. Case management to assist with placement.
--- NOTE | 2020-04-30 14:58 | PRG ---
DATE OF SERVICE: 04/30/2020 SUBJECTIVE: Mr. Ervin is improved clinically. This information obtained through the chart. I did not enter the room today in attempt to limit patient's contact with COVID and to preserve PPE. OBJECTIVE: VITAL SIGNS: Blood pressure is 132/80, his pulse is in the 80s on the monitor. There was no further ventricular arrhythmias. ASSESSMENT: 1. Positive COVID infection. 2. Atrial fibrillation, chronic, now rate controlled on his home medicines. 3. History of normal left ventricular function. PLAN: The patient is stable from cardiac standpoint. He should continue carvedilol, current dose. Continue rivaroxaban at the current dose. In addition, his kidney function has improved down to creatinine 1.8. We will sign off for now. Please re-consult if needed. He will follow up with his primary architect marine, Dr. Ambrosio Walker at the time of discharge. Job ID: [id number] MTDD
[2020-05-01] MEDS: Rivaroxaban 10 MG TAB PO SCH (08:50)
[2020-05-01] MEDS: Aspirin 81 mg Enteric Coated Tablet PO SCH (08:50)
[2020-05-01] MEDS: Bupropion 150 MG XL TAB PO SCH (08:51)
[2020-05-01] MEDS: Carvedilol 6.25 MG TAB PO SCH ×2 (08:51→17:46)
[2020-05-01] MEDS: cefTRIAXone\\ROCEPHIN 1 GM in Sodium Chloride 0.9% 100 ML IVPB SCH (08:51)
[2020-05-01] MEDS: Famotidine 20 MG TAB PO SCH (08:51)
[2020-05-01] MEDS: Sodium Chloride 0.9% 1,000 ML IV SCH ×2 (10:20→20:46)
[2020-05-01] MEDS: Simvastatin 20 MG TAB PO SCH (10:20)
--- NOTE | 2020-05-01 10:40 | PDOC.HOSPP ---
- Subjective Encounter Date: 05/01/20 Subjective: No new complaints. - Objective Vital Signs & Weight: Vital Signs (12 hours) Temp Pulse Resp BP Pulse Ox 05/01/20 08:50 98.2 F 79 15 145/91 H 97 05/01/20 07:44 97 05/01/20 04:39 97.8 F 81 18 137/78 97 Weight Weight 186 lb I&O: 04/30/20 05/01/20 05/02/20 06:59 06:59 06:59 Intake Total 2360 3310 480 Output Total 1650 775 625 Balance 710 2535 -145 Result Diagrams: 04/29/20 04:55 04/30/20 04:26 Hospitalist ROS - Medication Medications: Active Medications Generic Name Dose Route Start Last Admin Trade Name Freq PRN Reason Stop Dose Admin Aspirin 81 mg 04/27/20 09:00 05/01/20 08:50 Aspirin 81 Mg Enteric Coated Tablet PO 81 mg DAILY TAM Administration Bupropion HCl 300 mg 04/27/20 09:00 05/01/20 08:51 Bupropion 150 Mg Xl Tab PO 300 mg DAILY TAM Administration Carvedilol 25 mg 04/29/20 17:00 05/01/20 08:51 Carvedilol 6.25 Mg Tab PO 25 mg BID-WM TAM Administration Famotidine 20 mg 04/27/20 09:00 05/01/20 08:51 Famotidine 20 Mg Tab PO 20 mg 0900 TAM Administration Sodium Chloride 1,000 mls @ 100 mls/hr 04/27/20 01:00 05/01/20 10:20 Normal Saline 0.9% IV 1,000 mls .Q10H TAM Administration Ceftriaxone Sodium 1 gm/ 100 mls @ 200 mls/hr 04/28/20 08:15 05/01/20 08:51 Sodium Chloride IVPB 100 mls Q24HR TAM Administration Pantoprazole Sodium 40 mg 04/27/20 09:00 05/01/20 08:51 Pantoprazole 40 Mg Tab PO 40 mg DAILY TAM Administration Rivaroxaban 20 mg 04/27/20 09:00 05/01/20 08:50 Rivaroxaban 10 Mg Tab PO 20 mg DAILY TAM Administration Simvastatin 20 mg 04/27/20 09:00 05/01/20 10:20 Simvastatin 20 Mg Tab PO 20 mg DAILY TAM Administration Sodium Chloride 10 ml 04/30/20 09:00 05/01/20 08:52 Flush - Normal Saline 10 Ml Syringe IVF 10 ml Q12HR TAM Administration - Exam General Appearance: awake alert ENT: normocephalic atraumatic Neck: supple, no JVD Respiratory: normal chest expansion, no tachypnea Extremities: no cyanosis Neurological: cranial nerve grossly intact Hosp A/P (1) Urinary tract infection Status: Acute (2) Anticoagulant long-term use Code(s): Z79.01 - [facility] (CURRENT) USE OF ANTICOAGULANTS Status: Acute (3) Atrial fibrillation with RVR Code(s): I48.91 - UNSPECIFIED ATRIAL FIBRILLATION Status: Acute (4) COVID-19 Code(s): U07.1 - COVID-19 Status: Acute (5) Weakness Code(s): R53.1 - WEAKNESS Status: Acute - Plan Currently on room air. I will wean him off dexamethasone. Urine culture showing growth of Escherichia coli sensitive to all antibiotics that were tested. Continue IV ceftriaxone. We can transition the patient to Augmentin for discharge. A. fib is rate controlled on carvedilol. Rivaroxaban for anticoagulation. An episode of nonsustained V. tach was reported by nursing staff last night. The patient is on carvedilol. PT and OT for generalized weakness. Case management to assist with placement.
[2020-05-01 13:32] LABS: #Eosinphils 0.3 thou/uL (0.0-0.7); #Lymphocytes 1.2 thou/uL (1.20-3.40); #Monocytes 0.6 thou/uL (0.11-0.59); #Neutrophils 10.5 thou/uL (1.40-6.50); %Basophils 0.2 % (0.0-1.0); %Lymphocytes 9.5 % (21.0-51.0); %Monocytes 5.1 % (0.0-10.0); %Neutrophils 83.2 % (42.0-75.0); Hemoglobin 14.4 g/dL (14.0-18.0); Mean Corpuscular HGB CONC 32.6 g/dL (32.0-36.0); Mean Corpuscular Hemoglobin 30.3 pg (27.0-31.0); Mean Corpuscular Volume 92.9 fL (78.0-98.0); Mean Platelet Volume 8.8 fL (7.4-10.4); Platelet Count 265 thou/uL (130-400); RBC Distribution Width 13.4 % (11.5-14.5); Red Blood Cell (RBC) Count 4.75 mill/uL (4.70-6.10); White Blood Cell (WBC) Count 12.7 thou/uL (4.8-10.8)
[2020-05-01 15:32] LABS: Anion Gap 12 mmol/L (10-20); BUN (Urea Nitrogen) 22 mg/dL (8.4-25.7); Calc. Creatinine Clearance 62 mL/min (70-130); Calcium 8.1 mg/dL (7.8-10.44); Carbon Dioxide 18 mmol/L (23-31); Chloride 113 mmol/L (98-107); Glucose 123 mg/dL (80-115); Magnesium 1.5 mg/dL (1.6-2.6); Potassium 4.3 mmol/L (3.5-5.1); Sodium 139 mmol/L (136-145)
[2020-05-01] MEDS ORDERED: Magnesium 2 GM/50 ML 2 GM in Premix Bag 1 BAG IVPB SCH (16:30)
[2020-05-01] MEDS ORDERED: Electrolyte Replacement Protocol FS PRN (16:30)
[2020-05-02] MEDS ORDERED: Magnesium 2 GM/50 ML 2 GM in Premix Bag 1 BAG IVPB SCH (06:30)
[2020-05-02] MEDS: cefTRIAXone\\ROCEPHIN 1 GM in Sodium Chloride 0.9% 100 ML IVPB SCH (08:33)
[2020-05-02] MEDS: Bupropion 150 MG XL TAB PO SCH (08:34)
[2020-05-02] MEDS: Famotidine 20 MG TAB PO SCH (08:34)
[2020-05-02] MEDS: Aspirin 81 mg Enteric Coated Tablet PO SCH (08:34)
[2020-05-02] MEDS: Rivaroxaban 10 MG TAB PO SCH (08:34)
[2020-05-02] MEDS: Carvedilol 6.25 MG TAB PO SCH ×2 (08:35→17:38)
[2020-05-02] MEDS: Sodium Chloride 0.9% 1,000 ML IV SCH (09:50)
--- NOTE | 2020-05-02 10:35 | PDOC.HOSPP ---
- Subjective Encounter Date: 05/02/20 Subjective: The patient is resting comfortably. - Objective Vital Signs & Weight: Vital Signs (12 hours) Temp Pulse Resp BP Pulse Ox 05/02/20 08:36 97.6 F 103 H 18 140/82 98 05/02/20 06:49 99 05/02/20 03:56 98.3 F 101 H 18 118/77 99 05/01/20 23:53 97.9 F 63 14 135/88 98 Weight Weight 186 lb I&O: 05/01/20 05/02/20 05/03/20 06:59 06:59 06:59 Intake Total 3310 3290 1365 Output Total 775 2025 300 Balance 2535 1265 1065 Result Diagrams: 05/01/20 13:22 05/01/20 14:52 Hospitalist ROS - Medication Medications: Active Medications Generic Name Dose Route Start Last Admin Trade Name Freq PRN Reason Stop Dose Admin Aspirin 81 mg 04/27/20 09:00 05/02/20 08:34 Aspirin 81 Mg Enteric Coated Tablet PO 81 mg DAILY TAM Administration Bupropion HCl 300 mg 04/27/20 09:00 05/02/20 08:34 Bupropion 150 Mg Xl Tab PO 300 mg DAILY TAM Administration Carvedilol 25 mg 04/29/20 17:00 05/02/20 08:35 Carvedilol 6.25 Mg Tab PO 25 mg BID-WM TAM Administration Famotidine 20 mg 04/27/20 09:00 05/02/20 08:34 Famotidine 20 Mg Tab PO 20 mg 0900 TAM Administration Sodium Chloride 1,000 mls @ 100 mls/hr 04/27/20 01:00 05/02/20 09:50 Normal Saline 0.9% IV 1,000 mls .Q10H TAM Administration Ceftriaxone Sodium 1 gm/ 100 mls @ 200 mls/hr 04/28/20 08:15 05/02/20 08:33 Sodium Chloride IVPB 100 mls Q24HR TAM Administration Pantoprazole Sodium 40 mg 04/27/20 09:00 05/02/20 08:34 Pantoprazole 40 Mg Tab PO 40 mg DAILY TAM Administration Rivaroxaban 20 mg 04/27/20 09:00 05/02/20 08:34 Rivaroxaban 10 Mg Tab PO 20 mg DAILY TAM Administration Simvastatin 20 mg 04/27/20 09:00 05/01/20 10:20 Simvastatin 20 Mg Tab PO 20 mg DAILY TAM Administration Sodium Chloride 10 ml 04/30/20 09:00 05/02/20 08:35 Flush - Normal Saline 10 Ml Syringe IVF 10 ml Q12HR TAM Administration - Exam ENT: normocephalic atraumatic Neck: supple Respiratory: normal chest expansion, no tachypnea Extremities: no cyanosis Hosp A/P (1) Urinary tract infection Status: Acute (2) Anticoagulant long-term use Code(s): Z79.01 - [employer] (CURRENT) USE OF ANTICOAGULANTS Status: Acute (3) Atrial fibrillation with RVR Code(s): I48.91 - UNSPECIFIED ATRIAL FIBRILLATION Status: Acute (4) COVID-19 Code(s): U07.1 - COVID-19 Status: Acute (5) Weakness Code(s): R53.1 - WEAKNESS Status: Acute - Plan Currently on room air. Methadone discontinued. Urine culture showing growth of Escherichia coli sensitive to all antibiotics that were tested. Continue IV ceftriaxone. We can transition the patient to Augmentin for discharge. A. fib is rate controlled on carvedilol. Rivaroxaban for anticoagulation. An episode of nonsustained V. tach was reported by nursing staff last night. The patient is on carvedilol. PT and OT for generalized weakness. Placement pending.
[2020-05-02] MEDS: Simvastatin 20 MG TAB PO SCH (13:21)
--- NOTE | 2020-05-02 20:41 | PDOC.EVN ---
Event Note - Event Note Event Note: Nursing reported 13 beats Non-sustained VT, patient asymptomatic. VSS. Reviewed recent labs, lytes WNL, Mag low, however, was replaced this am. Will repeat mag in am.
[2020-05-03 05:24] LABS: Anion Gap 11 mmol/L (10-20); BUN (Urea Nitrogen) 16 mg/dL (8.4-25.7); Calc. Creatinine Clearance 67 mL/min (70-130); Calcium 8.4 mg/dL (7.8-10.44); Carbon Dioxide 22 mmol/L (23-31); Chloride 111 mmol/L (98-107); Glucose 84 mg/dL (80-115); Magnesium 1.5 mg/dL (1.6-2.6); Potassium 4.1 mmol/L (3.5-5.1); Sodium 140 mmol/L (136-145)
[2020-05-03] MEDS ORDERED: Magnesium 2 GM/50 ML 2 GM in Premix Bag 1 BAG IVPB SCH (06:30)
[2020-05-03] MEDS: Carvedilol 6.25 MG TAB PO SCH ×2 (08:21→16:20)
[2020-05-03] MEDS: Famotidine 20 MG TAB PO SCH (08:22)
[2020-05-03] MEDS: Simvastatin 20 MG TAB PO SCH (08:22)
[2020-05-03] MEDS: Bupropion 150 MG XL TAB PO SCH (08:22)
[2020-05-03] MEDS: Rivaroxaban 10 MG TAB PO SCH (08:22)
[2020-05-03] MEDS: Aspirin 81 mg Enteric Coated Tablet PO SCH (08:22)
--- NOTE | 2020-05-03 12:15 | PDOC.HOSPP ---
- Subjective Encounter Date: 05/03/20 Subjective: The patient is feeling better today. He was able to work with physical therapy. - Objective Vital Signs & Weight: Vital Signs (12 hours) Temp Pulse Pulse Resp BP BP Pulse Ox 05/03/20 09:10 98 144/76 H 05/03/20 08:00 97.6 F 105 H 18 139/76 95 05/03/20 04:00 97.3 F L 97 20 170/83 H 100 Pulse Ox 05/03/20 09:10 97 05/03/20 08:00 05/03/20 04:00 Weight Weight 186 lb I&O: 05/02/20 05/03/20 05/04/20 06:59 06:59 06:59 Intake Total 3290 1845 Output Total 2025 950 Balance 1265 895 Result Diagrams: 05/01/20 13:22 05/03/20 04:44 Hospitalist ROS - Medication Medications: Active Medications Generic Name Dose Route Start Last Admin Trade Name Freq PRN Reason Stop Dose Admin Aspirin 81 mg 04/27/20 09:00 05/03/20 08:22 Aspirin 81 Mg Enteric Coated Tablet PO 81 mg DAILY TAM Administration Bupropion HCl 300 mg 04/27/20 09:00 05/03/20 08:22 Bupropion 150 Mg Xl Tab PO 300 mg DAILY TAM Administration Carvedilol 25 mg 04/29/20 17:00 05/03/20 08:21 Carvedilol 6.25 Mg Tab PO 25 mg BID-WM TAM Administration Famotidine 20 mg 04/27/20 09:00 05/03/20 08:22 Famotidine 20 Mg Tab PO 20 mg 0900 TAM Administration Ceftriaxone Sodium 1 gm/ 100 mls @ 200 mls/hr 04/28/20 08:15 05/02/20 08:33 Sodium Chloride IVPB 100 mls Q24HR TAM Administration Pantoprazole Sodium 40 mg 04/27/20 09:00 05/03/20 08:21 Pantoprazole 40 Mg Tab PO 40 mg DAILY TAM Administration Rivaroxaban 20 mg 04/27/20 09:00 05/03/20 08:22 Rivaroxaban 10 Mg Tab PO 20 mg DAILY TAM Administration Simvastatin 20 mg 04/27/20 09:00 05/03/20 08:22 Simvastatin 20 Mg Tab PO 20 mg DAILY TAM Administration Sodium Chloride 10 ml 04/30/20 09:00 05/03/20 08:23 Flush - Normal Saline 10 Ml Syringe IVF 10 ml Q12HR TAM Administration - Exam General Appearance: awake alert ENT: normocephalic atraumatic Neck: supple Heart: RRR Respiratory: normal chest expansion, no tachypnea Neurological: cranial nerve grossly intact, no focal deficits Hosp A/P (1) Weakness Code(s): R53.1 - WEAKNESS Status: Acute (2) Urinary tract infection Status: Acute (3) Anticoagulant long-term use Code(s): Z79.01 - [employer] (CURRENT) USE OF ANTICOAGULANTS Status: Acute (4) Atrial fibrillation with RVR Code(s): I48.91 - UNSPECIFIED ATRIAL FIBRILLATION Status: Acute (5) COVID-19 Code(s): U07.1 - COVID-19 Status: Acute - Plan Currently on room air. Urine culture showing growth of Escherichia coli sensitive to all antibiotics that were tested. Continue IV ceftriaxone. We can transition the patient to Augmentin for discharge. A. fib is rate controlled on carvedilol. Rivaroxaban for anticoagulation. An episode of nonsustained V. tach was reported by nursing staff last night. The patient is on carvedilol. PT and OT for generalized weakness. Placement pending.
[2020-05-03] MEDS: cefTRIAXone\\ROCEPHIN 1 GM in Sodium Chloride 0.9% 100 ML IVPB SCH (13:33)
[2020-05-04] MEDS: Bupropion 150 MG XL TAB PO SCH (08:53)
[2020-05-04] MEDS: Simvastatin 20 MG TAB PO SCH (08:53)
[2020-05-04] MEDS: Famotidine 20 MG TAB PO SCH (08:54)
[2020-05-04] MEDS: Carvedilol 6.25 MG TAB PO SCH (08:54)
[2020-05-04] MEDS: Aspirin 81 mg Enteric Coated Tablet PO SCH (08:55)
[2020-05-04] MEDS: Rivaroxaban 10 MG TAB PO SCH (08:55)
[2020-05-04] MEDS: cefTRIAXone\\ROCEPHIN 1 GM in Sodium Chloride 0.9% 100 ML IVPB SCH (08:57)
--- NOTE | 2020-05-04 11:54 | PDOC.DS.DS ---
Provider - Provider Date of Admission: 04/26/20 19:26 Date of Discharge: 05/04/20 Admitting Provider: Navdeep Chavez MD Primary Care Physician: Carrillo Siddiqui MD Course - Hospital Course Hospital Course: The patient is a 69-year-old male with past medical history of atrial fibrillation and hypertension who was admitted to the hospital for acute hypoxic respiratory failure secondary to COVID-19 infection and UTI due to Escherichia coli. The patient was managed with supplemental oxygen, dexamethasone, and antibiotics. His condition gradually improved. He was noted to have generalized weakness and physical therapy recommended rehab placement. The patient's atrial fibrillation was controlled on carvedilol and the patient was anticoagulated with rivaroxaban. Few episodes of nonsustained V. tach were noted and improved after increasing his beta-anthony dosage. Resuscitation Status: 04/27/20 00:53 Resuscitation Status Routine Resuscitation Status: FULL: Full Resuscitation - Labs Lab Results: 05/01/20 13:22 05/03/20 04:44 Abnormal Lab Results - Last 48 hrs 05/03/20 04:44: Chloride 111 H, Carbon Dioxide 22 L, Magnesium 1.5 L Microbiology - Entire Visit 04/26/20 18:35 Venous blood - Right Hand Blood Culture - Final NO GROWTH IN 5 DAYS 04/26/20 18:35 Venous blood - Right Arm Blood Culture - Final NO GROWTH IN 5 DAYS 04/26/20 18:41 Urine voided Urine Culture - Final Escherichia coli - Physical Exam Vitals: Vital Signs (12 hours) Temp Pulse Resp BP BP BP Pulse Ox 05/04/20 08:54 160/79 H 05/04/20 07:42 98.1 F 70 18 160/79 H 99 05/04/20 06:33 98 05/04/20 04:00 98.0 F 88 18 145/80 H 98 Weight Weight 186 lb Physical Exam: The patient was seen and examined on the day of discharge. Problem - Problem (1) Weakness Code(s): R53.1 - WEAKNESS Status: Acute (2) Urinary tract infection Status: Acute (3) Anticoagulant long-term use Code(s): Z79.01 - [facility] (CURRENT) USE OF ANTICOAGULANTS Status: Acute (4) Atrial fibrillation with RVR Code(s): I48.91 - UNSPECIFIED ATRIAL FIBRILLATION Status: Acute (5) COVID-19 Code(s): U07.1 - COVID-19 Status: Acute Plan - Discharge Medications Home Medications: Medication Instructions Recorded Confirmed Type Amlodipine [Norvasc] 5 mg PO DAILY 04/26/20 04/26/20 History Aspirin [Ecotrin Low Strength] 81 mg PO DAILY 04/26/20 04/26/20 History Isosorbide Mononitrate [Imdur ER] 30 mg PO DAILY 04/26/20 04/26/20 History Lisinopril 20 mg PO DAILY 04/26/20 04/26/20 History Rivaroxaban [Xarelto] 20 mg PO DAILY 04/26/20 04/26/20 History Simvastatin 20 mg PO DAILY 04/26/20 04/26/20 History Spironolactone 25 mg PO DAILY 04/26/20 04/26/20 History buPROPion HCl [Bupropion Xl] 300 mg PO DAILY 04/26/20 04/26/20 History Carvedilol 25 mg PO BID-AC #0 05/04/20 04/26/20 Rx Pantoprazole [Protonix] 40 mg PO DAILY tab 05/04/20 Rx Allergies: No Known Allergies Allergy (Verified 04/26/20 22:32) - Follow up Plan Referrals: [facility]* [Outside] Carrillo Siddiqui MD [Primary Care Provider] - Disposition: HOME Quality - Care Measures CORE MEASURES:: N/A
[2020-05-04 12:26] VITALS: BP 141/84; TEMP 98
--- NOTE | 2020-05-07 04:44 | PQF ---
CLINICAL DOCUMENTATION CLARIFICATION FORM: Dear : Bello Chan Date / Time:05/07/20 04:44 Please exercise your independent, professional judgment in responding to the clarification form. Clinical indicators are provided on the bottom of this form for your review Please check appropriate box(es): [ >] Sepsis due to Covid 19 infection [ ] Severe Sepsis due to Covid 19 infection [ ] Localized infection without sepsis [ ] Other diagnosis, please specify [ ] Unable to determine Physician Signature: Date/Time: For continuity of documentation, please document condition throughout progress notes and discharge summary. Thank You. To be completed by CDI/Coding staff for physician review: Present Clinical Indicators - Signs / Symptoms / Labs Results and Location in Medical Record [x] Sepsis ED Notes 04/26 [x] Chest Xray: mild linear interstitial density Chest Xray 04/26 [x] RYLAN ED Notes 04/26 [x] UTI ED Notes 04/26 [x] Metabolic encephalopathy HP 04/27 [x] Acute respiratory failure secondary to Covid19 infection DS 05/04 [x] Temp=97.7 Xkutk=826 RM=473/64 Respi=24 Vital Signs 04/26 [x] WBC: 04/26=28.2 04/27=21.4 04/28=13.1 Laboratory 04/26 [x] Lactate: 04/26=2.7 Laboratory 04/26 [x] Blood culture: no growth Laboratory 04/26 Present Risk Factors Results and Location in Medical Record [x] 69 years old male ED Notes 04/26 [x] Former Smoker ED Notes 04/26 [x] UTI ED Notes 04/26 [x] Covid19 infection DS 05/04 Present Treatments Results and Location in Medical Record [x] Isolation HP 04/27 [x] Vancomycin 1gm IV MAR 04/26 [x] Zosyn 4.5gm IV JUN 11 [x] IVF JUN 11 [x] Rocephin 1gm IV JUN 11 [x] Azithromycin 500mg IV JUN 11 [facility] Signature: Samuel Muse Phone #: [phone] Date/Time: 05/07/20 This is a permanent part of the Medical Record [facility]
--- NOTE | 2020-05-19 16:39 | EKG ---
Test Reason : Blood Pressure : / mmHG Vent. Rate : 088 BPM Atrial Rate : 083 BPM P-R Int : 000 ms QRS Dur : 082 ms QT Int : 372 ms P-R-T Axes : 000 -31 062 degrees QTc Int : 450 ms Atrial fibrillation Premature ventricular complexes Left axis deviation Abnormal ECG #2 Confirmed by MERVIN CA, LC Morfin ([id number]), content editor LEONOR LOPEZ ([id number]) on 05/19/2020 4:39:15 PM Referred By: Confirmed By:LC JEFFRIES MD
--- NOTE | 2020-05-19 16:39 | EKG ---
Test Reason : Blood Pressure : / mmHG Vent. Rate : 148 BPM Atrial Rate : 156 BPM P-R Int : 000 ms QRS Dur : 078 ms QT Int : 268 ms P-R-T Axes : 000 099 -26 degrees QTc Int : 420 ms Atrial fibrillation with rapid ventricular response Rightward axis Nonspecific ST and T wave abnormality Abnormal ECG Confirmed by MERVIN CA, LC Morfin ([id number]), development editor LEONOR LOPEZ ([id number]) on 05/19/2020 4:38:41 PM Referred By: Confirmed By:LC JEFFRIES MD
== END 2020-05-04 16:15 | disposition swing bed (61) | DRG 871 ==
LOC: ERS 17:18 → 2SE 19:26
PROVIDERS: ADMIT Internal Medicine; ATTEND Internal Medicine
PROC: 8E0ZXY6 Isolation (ICD-10-PCS; principal; 2020-04-26)
DX: A41.89 Other specified sepsis (principal); U07.1 COVID-19; G93.41 Metabolic encephalopathy; J96.01 Acute respiratory failure with hypoxia; N39.0 Urinary tract infection, site not specified; N17.9 Acute kidney failure, unspecified; I48.20 Chronic atrial fibrillation, unspecified; I47.1 Supraventricular tachycardia; I10 Essential (primary) hypertension; R79.89 Other specified abnormal findings of blood chemistry; E87.5 Hyperkalemia; E86.1 Hypovolemia; R19.7 Diarrhea, unspecified; B96.20 Unspecified Escherichia coli [E. coli] as the cause of diseases classified elsewhere; Z87.891 Personal history of nicotine dependence; Z79.01 Long term (current) use of anticoagulants; Z79.82 Long term (current) use of aspirin
CPT/HCPCS: 0240U; 36415; 71045; 76705; 80048; 80053; 80076; 80306; 81003; 81015; 82550; 82553; 82728; 83605; 83735; 83880; 84484; 85025; 85379; 86140; 87040; 87077; 87086; 87186; 93005; 94760; 96365; 96366; 96368; J0456; J0692; J0696; J1100; J2543; J3370; J3475; J3490; J7050